=== PATIENT | female | born 1950 | race Caucasian/White ===

== ENCOUNTER 2022-12-29 16:12 | Emergency (ER) | payer OTHER ==
[2022-12-29 16:34] VITALS: BP 121/80; PULSE 70; RESP 18; TEMP 98; BMI 31.4
[2022-12-29] MEDS ORDERED: diphenhydrAMINE HCL 25 MG CAPSULE (FP) PO ONE ×2 (17:02→17:24)
== END 2022-12-29 17:53 | disposition home or self-care (01) ==
LOC: JER 16:12
DX: R21 Rash and other nonspecific skin eruption (principal); L50.9 Urticaria, unspecified; L29.9 Pruritus, unspecified
CPT/HCPCS: 99283-25

== ENCOUNTER 2024-01-20 20:14 | Emergency (ER) | payer OTHER ==
[2024-01-20 20:30] VITALS: BP 147/63; PULSE 66; RESP 20; TEMP 97.5; BMI 26.6
[2024-01-20] MEDS ORDERED: CEPHALEXIN MONOHYDRATE 500 MG CAPSULE (UD) ONE (21:29)
[2024-01-20] MEDS ORDERED: IBUPROFEN 600 MG TABLET (FP) PO ONE (21:29)
[2024-01-20] MEDS: IBUPROFEN 600 MG TABLET (FP) PO ONE (21:36)
[2024-01-20] MEDS: CEPHALEXIN MONOHYDRATE 500 MG CAPSULE (UD) PO ONE (21:36)
== END 2024-01-20 21:47 | disposition home or self-care (01) ==
LOC: JERFT 20:14 → JER 20:14 → JERFT 21:47
PROC: 0H9FXZZ Drainage of Right Hand Skin, External Approach (ICD-10-PCS; principal; 2024-01-20)
DX: L03.011 Cellulitis of right finger (principal)
CPT/HCPCS: 73140-TC-RT-FY; 99283-25

== ENCOUNTER 2024-12-08 06:22 | Day surgery (SDC) | payer OTHER ==
[2024-12-01 12:38] VITALS: BMI 31.6
[2024-12-08 08:36] VITALS: TEMP 97.6
[2024-12-08] MEDS ORDERED: ACETAMINOPHEN 325 MG TABLET (FP) ONE (10:09)
[2024-12-08] MEDS: ACETAMINOPHEN 325 MG TABLET (FP) PO ONE (10:17)
[2024-12-08 10:18] VITALS: RESP 16
[2024-12-08 10:43] VITALS: BP 144/79; PULSE 68
== END 2024-12-08 11:00 | disposition home or self-care (01) ==
LOC: JASU-ENDO 06:22
PROVIDERS: ATTEND Internal Medicine Gastroenterology
PROC: 0DB78ZX Excision of Stomach, Pylorus, Via Natural or Artificial Opening Endoscopic, Diagnostic (ICD-10-PCS; 2024-12-08)
PROC: 0DB68ZX Excision of Stomach, Via Natural or Artificial Opening Endoscopic, Diagnostic (ICD-10-PCS; 2024-12-08)
PROC: 0DB38ZX Excision of Lower Esophagus, Via Natural or Artificial Opening Endoscopic, Diagnostic (ICD-10-PCS; principal; 2024-12-08 08:00)
DX: K21.9 Gastro-esophageal reflux disease without esophagitis (principal); K29.50 Unspecified chronic gastritis without bleeding
CPT/HCPCS: 88305-TC; 88342-TC